=== PATIENT | male | born 1945 | race Caucasian/White ===

== ENCOUNTER 2021-01-19 16:12 | Emergency (ER) | payer MEDICARE ==
[~2021-01-19] VITALS: Ht 185.4 cm; Wt 100.0 kg
[~2021-01-19 16:12] MED LIST: NO HOME MEDS; SOTA80TA73 PO
[2021-01-19 16:27] VITALS: BP 149/82
== END 2021-01-19 17:51 | disposition home or self-care (01) ==
LOC: ER 16:13
DX: S01.21XA Laceration without foreign body of nose, initial encounter (principal); I48.91 Unspecified atrial fibrillation; Z79.899 Other long term (current) drug therapy; W22.8XXA Striking against or struck by other objects, initial encounter; Y93.89 Activity, other specified; Y92.009 Unspecified place in unspecified non-institutional (private) residence as the place of occurrence of the external cause; Y99.8 Other external cause status
CPT/HCPCS: 99282